=== PATIENT | female | born 1955 | race Caucasian/White ===

== ENCOUNTER 2018-06-03 05:55 | Inpatient (IN) | payer MEDICAID ==
[2018-06-01 12:47] LABS: BASOPHILS % (AUTO) 0.3 % (0-1); EOSINOPHILS # (AUTO) 0.2 X10'3 (0-0.9); EOSINOPHILS % (AUTO) 2.2 % (0-6); LYMPHOCYTES # (AUTO) 2.2 X10'3 (1.1-4.8); LYMPHOCYTES % (AUTO) 30.3 % (21-51); MEAN CORPUSCULAR HGB CONC 33.7 % (33.0-36.5); MEAN CORPUSCULAR VOLUME 88.8 FL (78-98); MONOCYTES # (AUTO) 0.5 X10'3 (0-0.9); MONOCYTES % (AUTO) 6.7 % (2-12); NEUTROPHILS # (AUTO) 4.3 X10'3 (1.8-7.7); NEUTROPHILS % (AUTO) 60.5 % (42-75); PRE OP HEMATOCRIT 44.7 % (35.0-45.0); PRE OP HEMOGLOBIN 15.1 g/dL (12.0-16.0); PRE OP PLATELET COUNT 212 X10'3 (140-440); RED BLOOD COUNT 5.04 X10'6 (4.20-5.60); RED CELL DISTRIBUTION WIDTH 13.3 % (11.5-14.5)
[2018-06-01 12:50] LABS: CLARITY,URINE CLEAR (Clear); COLOR,URINE YELLOW (Yellow); GLUCOSE, URINE NEGATIVE (Neg); KETONES,URINE NEGATIVE (Neg); LEUKOCYTE ESTERASE ,URINE NEGATIVE (Neg); NITRITES, URINE NEGATIVE (Neg); OCCULT BLOOD,URINE NEGATIVE (Neg); PH,URINE 5.5 (4.8-8.0); PROTEIN,URINE NEGATIVE (Neg); UROBILINOGEN,URINE 0.2 E.U/dL (0.2-1.0)
[2018-06-01 12:52] LABS: UA COLLECTION TYPE CLN CATCH MIDSTREAM
[2018-06-01 13:02] LABS: PRE OP INR 1.1 INR; PRE OP PROTIME 10.7 SECONDS (9.0-12.0)
[2018-06-01 13:14] LABS: ALBUMIN 3.8 G/DL (3.4-5.0); ALBUMIN/GLOBULIN RATIO 1.1 (1.1-1.5); ALKALINE PHOSPHATASE 79 IU/L (46-116); BLOOD UREA NITROGEN 24 MG/DL (7-18); BUN/CREATININE RATIO 32.4 (6.6-38.0); CALCIUM 9.7 MG/DL (8.5-10.1); CHLORIDE 102 MMOL/L (99-107); CREATININE 0.74 MG/DL (0.40-0.90); PRE OP ALT 20 U/L (30-65); PRE OP ANION GAP 6 (8-16); PRE OP AST 17 U/L (10-37); PRE OP BILIRUB, TOTAL 0.5 MG/DL (0.0-1.0); PRE OP GLUCOSE 89 MG/DL (70-104); PRE OP SODIUM 142 MMOL/L (135-145); TOTAL CARBON DIOXIDE 34.3 MMOL/L (24-32); TOTAL PROTEIN 7.2 G/DL (6.4-8.2); eGFR 80 ML/MIN
[2018-06-01 13:29] LABS: PRE OP POTASSIUM 3.2 MMOL/L (3.4-5.1)
[~2018-06-03] VITALS: Ht 167.6 cm; Wt 71.1 kg
[2018-06-03] VITALS (20 sets, daily range): BP systolic 101–134; BP diastolic 55–86
[~2018-06-03 05:55] MED LIST: ALBU18HF2 IH; BECL7.3A INH; CHOL10002 PO; CLON0.5T23 PO; DULO-31 PO; GLUC-131 PO; HYDR-4353 PO; HYDR25TA4 PO; LUTE40CA PO; MAGN400C PO; POTA10CA44 PO; THY60T PO; ZOLP5TAB8 PO; [UNRECOGNIZED DRUG - CODE] PO; albuterol 2.5 MG/3 ML nebule NEB ONE; ceFOXitin 2 GM ADDvantage bag 100 ML IV ONE; famotidine 20mg tablet PO ONE; ringers solution, lacted 1,000 ML IV SCH
[2018-06-03] MEDS ORDERED: LIDOcaine 1% (10mg/ml) 2ml vial ONE (06:11)
[2018-06-03 07:06] LABS: ISTAT CREATININE 0.7 mg/dL (0.6-1.1); ISTAT HGB 13.6 g/dl (12.0-16.0); ISTAT IONIZED CALCIUM 1.2 mmol/L (1.03-1.32); POC BUN/CREATININE RATIO 24.3 (6.6-38.0)
[2018-06-03] MEDS ORDERED: Potassium Cl 40 MEQ in NS 500 ML IV ONE (07:20)
[2018-06-03] MEDS ORDERED: potassium Cl 20 mEq SR tablet PO ONE (07:20)
[2018-06-03] MEDS ORDERED: fentaNYL /PF 50mcg/ml 5ml ampule ONE (08:19)
[2018-06-03] MEDS ORDERED: midazolam 2 mg/2 ml injection ONE (08:19)
[2018-06-03] MEDS ORDERED: propofol inj 20 ML IV ONE (08:21)
[2018-06-03] MEDS ORDERED: rocuronium 10mg/ml inj IV ONE ×2 (08:21→08:22)
[2018-06-03] MEDS ORDERED: LIDOcaine 2% (20mg/ml) 5ml vial ONE (08:21)
[2018-06-03] MEDS ORDERED: ondansetron/PF 4mg/2ml inj ONE (08:22)
[2018-06-03] MEDS ORDERED: neostigmine methylsulfate 1 MG/ML 10ml vial ONE (08:22)
[2018-06-03] MEDS ORDERED: sevoflurane 250ml liquid IH ONE (08:22)
[2018-06-03] MEDS ORDERED: glycopyrrolate 0.2mg/ml inj ONE (08:22)
[2018-06-03] MEDS ORDERED: dexamethasone sod phosphate 4mg/ml inj. ONE (08:46)
[2018-06-03] MEDS ORDERED: gentamicin 40 MG/1 ML inj ONE (08:57)
[2018-06-03] MEDS ORDERED: clindamycin phosphate 150mg/ml inj. ONE (08:57)
[2018-06-03] MEDS ORDERED: meperidine/PF 25mg/ml syringe IV PRN ×2 (09:10)
[2018-06-03] MEDS ORDERED: morphine 4 MG/ML inj SYRINge IV PRN ×2 (09:10)
[2018-06-03] MEDS ORDERED: ringers solution, lacted 1,000 ML IV SCH (09:10)
[2018-06-03] MEDS ORDERED: ondansetron/PF 4mg/2ml inj IV PRN ×2 (09:10→10:30)
[2018-06-03] MEDS ORDERED: proCHLORperazine 10 MG/2 ml inj IV PRN (09:10)
[2018-06-03] MEDS ORDERED: HYDROmorphone 1 mg/ml syringe IV PRN (10:30)
[2018-06-03] MEDS: meperidine/PF 25mg/ml syringe IV PRN ×2 (10:46→11:09)
[2018-06-03 11:37] LABS: ISTAT K 2.9 mmol/L (3.5-5.1)
[2018-06-03] MEDS ORDERED: ketorolac trometh. 30mg/ml inj. IV SCH (14:00)
[2018-06-03] MEDS: potassium CL 20mEq in D5-1/2NS 1,000 ML IV SCH ×2 (15:37→17:39)
[2018-06-03] MEDS: ceFOXitin 1 GM ADDVANTAGE BAG 50 ML IV SCH (16:22)
[2018-06-03] MEDS ORDERED: morphine/NS 5 mg/ml CADD 50 ML IV SCH (17:00)
[2018-06-03] MEDS ORDERED: CADD PCA waste documentation MC SCH (17:20)
[2018-06-03] MEDS: morphine/NS 5 mg/ml CADD 50 ML IV SCH ×3 (19:10→23:00)
[2018-06-04] VITALS: BP 116/53
[2018-06-04] MEDS: potassium CL 20mEq in D5-1/2NS 1,000 ML IV SCH ×3 (00:14→20:05)
[2018-06-04] MEDS: ceFOXitin 1 GM ADDVANTAGE BAG 50 ML IV SCH (00:14)
[2018-06-04] MEDS: morphine/NS 5 mg/ml CADD 50 ML IV SCH ×12 (01:00→23:00)
[2018-06-04 05:30] LABS: BASOPHILS % (AUTO) 0 % (0-1); EOSINOPHILS # (AUTO) 0.2 X10'3 (0-0.9); EOSINOPHILS % (AUTO) 1.9 % (0-6); HEMATOCRIT 38.6 % (35.0-45.0); HEMOGLOBIN 12.8 g/dl (12.0-16.0); LYMPHOCYTES # (AUTO) 1.6 X10'3 (1.1-4.8); LYMPHOCYTES % (AUTO) 12.9 % (21-51); MEAN CORPUSCULAR HEMOGLOBIN 29.9 PG (27.0-31.0); MEAN CORPUSCULAR HGB CONC 33.1 % (33.0-36.5); MEAN CORPUSCULAR VOLUME 90.4 FL (78-98); MEAN PLATELET VOLUME 9.4 FL (7.4-10.4); MONOCYTES # (AUTO) 1.3 X10'3 (0-0.9); MONOCYTES % (AUTO) 10.2 % (2-12); NEUTROPHILS # (AUTO) 9.5 X10'3 (1.8-7.7); PLATELET COUNT 175 X10'3 (140-440); RED BLOOD COUNT 4.28 X10'6 (4.20-5.60); RED CELL DISTRIBUTION WIDTH 13.7 % (11.5-14.5); WHITE BLOOD COUNT 12.6 X10'3 (4.5-11.0)
[2018-06-04 06:05] LABS: ALBUMIN 2.9 G/DL (3.4-5.0); ANION GAP 8 (8-16); BLOOD UREA NITROGEN 9 MG/DL (7-18); BUN/CREATININE RATIO 14.3 (6.6-38.0); CALCIUM 8.6 MG/DL (8.5-10.1); CHLORIDE 107 MMOL/L (99-107); CREATININE 0.63 MG/DL (0.40-0.90); GLUCOSE 121 MG/DL (70-104); POTASSIUM 3.9 MMOL/L (3.5-5.1); SODIUM 142 MMOL/L (135-145); TOTAL CARBON DIOXIDE 26.6 MMOL/L (24-32); eGFR > 90 ML/MIN
[2018-06-04 06:53] VITALS: BP 103/59
[2018-06-04] MEDS ORDERED: HYDROchlorothiazide 25mg tablet PO PRN (11:10)
[2018-06-04] MEDS ORDERED: zolpidem 5mg tablet PO PRN (11:10)
[2018-06-04] MEDS ORDERED: clonazePAM 0.5mg tablet PO PRN (11:10)
[2018-06-04] MEDS ORDERED: HYDROcodone/acetaminophen 10/325mg tab PO PRN (11:10)
[2018-06-04 11:45] VITALS: BP 107/50
[2018-06-04] MEDS ORDERED: potassium chloride 10mEq CAPSULE.SA PO SCH (12:00)
[2018-06-04] MEDS ORDERED: mag hydrox/Alum hydrox/simeth 30ml oral suspension PO PRN (12:10)
[2018-06-04] MEDS: duloxetine 30mg CAPSULE.DR PO SCH (12:19)
[2018-06-04] MEDS: thyroid, pork 30mg tablet PO SCH (12:41)
[2018-06-04] MEDS ORDERED: potassium chloride 10mEq ER tablet PO SCH (12:51)
[2018-06-04] MEDS: potassium chloride 10mEq ER tablet PO SCH (13:14)
[2018-06-04] MEDS: albuterol 2.5 MG/3 ML nebule NEB PRN ×2 (17:34→20:56)
[2018-06-04 20:00] VITALS: BP 116/60
[2018-06-04] MEDS ORDERED: mag hydrox/Alum hydrox/simeth 30ml oral suspension PO ONE (20:00)
[2018-06-04] MEDS ORDERED: BUDESONIDE 0.25 MG/2 ML AMPUL.NEB IH SCH (20:00)
[2018-06-04] MEDS: famotidine/PF 10 mg/ml inj IV SCH (20:01)
[2018-06-04] MEDS: BUDESONIDE 0.25 MG/2 ML AMPUL.NEB IH SCH (20:57)
[2018-06-05] VITALS: BP 103/53
[2018-06-05] MEDS: morphine/NS 5 mg/ml CADD 50 ML IV SCH ×8 (01:00→15:00)
[2018-06-05] MEDS: potassium CL 20mEq in D5-1/2NS 1,000 ML IV SCH ×2 (05:15→22:13)
[2018-06-05 05:16] LABS: BASOPHILS % (AUTO) 0.3 % (0-1); EOSINOPHILS # (AUTO) 0.2 X10'3 (0-0.9); EOSINOPHILS % (AUTO) 2.6 % (0-6); HEMATOCRIT 35.1 % (35.0-45.0); HEMOGLOBIN 11.8 g/dl (12.0-16.0); LYMPHOCYTES # (AUTO) 1.7 X10'3 (1.1-4.8); MEAN CORPUSCULAR HEMOGLOBIN 30.4 PG (27.0-31.0); MEAN CORPUSCULAR HGB CONC 33.7 % (33.0-36.5); MEAN CORPUSCULAR VOLUME 90.1 FL (78-98); MEAN PLATELET VOLUME 9.5 FL (7.4-10.4); MONOCYTES # (AUTO) 0.9 X10'3 (0-0.9); MONOCYTES % (AUTO) 10.4 % (2-12); NEUTROPHILS % (AUTO) 67.7 % (42-75); PLATELET COUNT 148 X10'3 (140-440); RED BLOOD COUNT 3.89 X10'6 (4.20-5.60); RED CELL DISTRIBUTION WIDTH 13.9 % (11.5-14.5); WHITE BLOOD COUNT 8.8 X10'3 (4.5-11.0)
[2018-06-05 06:20] LABS: ALBUMIN 2.8 G/DL (3.4-5.0); ANION GAP 6 (8-16); BLOOD UREA NITROGEN 6 MG/DL (7-18); BUN/CREATININE RATIO 10.2 (6.6-38.0); CALCIUM 8.3 MG/DL (8.5-10.1); CHLORIDE 107 MMOL/L (99-107); CREATININE 0.59 MG/DL (0.40-0.90); GLUCOSE 97 MG/DL (70-104); POTASSIUM 4.2 MMOL/L (3.5-5.1); SODIUM 141 MMOL/L (135-145); TOTAL CARBON DIOXIDE 28.1 MMOL/L (24-32); eGFR > 90 ML/MIN
[2018-06-05 07:28] VITALS: BP 110/64
[2018-06-05] MEDS: thyroid, pork 30mg tablet PO SCH (07:42)
[2018-06-05] MEDS: potassium chloride 10mEq ER tablet PO SCH (07:42)
[2018-06-05] MEDS: duloxetine 30mg CAPSULE.DR PO SCH (07:43)
[2018-06-05] MEDS: famotidine/PF 10 mg/ml inj IV SCH (07:45)
[2018-06-05] MEDS: BUDESONIDE 0.25 MG/2 ML AMPUL.NEB IH SCH ×2 (08:50→20:52)
[2018-06-05] MEDS: albuterol 2.5 MG/3 ML nebule NEB PRN (08:50)
[2018-06-05] MEDS ORDERED: albuterol 2.5 MG/3 ML nebule NEB PRN (10:00)
[2018-06-05] MEDS ORDERED: albuterol 2.5 MG/3 ML nebule NEB SCH (10:05)
[2018-06-05 11:45] VITALS: BP 104/58
[2018-06-05] MEDS: HYDROcodone/acetaminophen 10/325mg tab PO PRN ×2 (16:49→21:21)
[2018-06-05] MEDS: albuterol 2.5 MG/3 ML nebule NEB SCH ×3 (16:58→23:00)
[2018-06-05 19:30] VITALS: BP 109/57
[2018-06-05] MEDS: famotidine 20mg tablet PO SCH (19:56)
[2018-06-06] MEDS: HYDROcodone/acetaminophen 10/325mg tab PO PRN ×4 (01:40→14:26)
[2018-06-06] MEDS: albuterol 2.5 MG/3 ML nebule NEB SCH ×4 (03:04→14:49)
[2018-06-06 05:16] LABS: BASOPHILS % (AUTO) 0.2 % (0-1); EOSINOPHILS # (AUTO) 0.2 X10'3 (0-0.9); HEMATOCRIT 33.2 % (35.0-45.0); HEMOGLOBIN 11.3 g/dl (12.0-16.0); LYMPHOCYTES % (AUTO) 16.9 % (21-51); MEAN CORPUSCULAR HEMOGLOBIN 30.3 PG (27.0-31.0); MEAN CORPUSCULAR VOLUME 89.2 FL (78-98); MEAN PLATELET VOLUME 9.1 FL (7.4-10.4); MONOCYTES # (AUTO) 0.7 X10'3 (0-0.9); MONOCYTES % (AUTO) 12.7 % (2-12); NEUTROPHILS # (AUTO) 3.8 X10'3 (1.8-7.7); NEUTROPHILS % (AUTO) 67.2 % (42-75); PLATELET COUNT 136 X10'3 (140-440); RED BLOOD COUNT 3.72 X10'6 (4.20-5.60); RED CELL DISTRIBUTION WIDTH 13.4 % (11.5-14.5); WHITE BLOOD COUNT 5.7 X10'3 (4.5-11.0)
[2018-06-06 05:30] LABS: ALBUMIN 2.5 G/DL (3.4-5.0); ANION GAP 7 (8-16); BLOOD UREA NITROGEN 5 MG/DL (7-18); BUN/CREATININE RATIO 8.1 (6.6-38.0); CALCIUM 8.5 MG/DL (8.5-10.1); CHLORIDE 105 MMOL/L (99-107); CREATININE 0.62 MG/DL (0.40-0.90); GLUCOSE 103 MG/DL (70-104); POTASSIUM 3.7 MMOL/L (3.5-5.1); SODIUM 140 MMOL/L (135-145); eGFR > 90 ML/MIN
[2018-06-06 07:00] VITALS: BP 104/60
[2018-06-06] MEDS: BUDESONIDE 0.25 MG/2 ML AMPUL.NEB IH SCH (07:43)
[2018-06-06] MEDS: potassium chloride 10mEq ER tablet PO SCH (08:20)
[2018-06-06] MEDS: thyroid, pork 30mg tablet PO SCH (08:20)
[2018-06-06] MEDS: duloxetine 30mg CAPSULE.DR PO SCH (08:20)
[2018-06-06] MEDS: famotidine 20mg tablet PO SCH (08:21)
[2018-06-06 11:00] VITALS: BP 108/65
[2018-06-06] MEDS ORDERED: pneumococcal 23-VAL P-sac vacc 25 mcg/0.5ml vial IMVAC ONE (11:50)
== END 2018-06-06 18:36 | disposition home or self-care (01) | DRG 231 ==
LOC: PAS IN 05:55 → EDSTATUS 08:00 → EDBD 08:00 → SUR 3N 12:41
PROVIDERS: ADMIT Surgery; ATTEND Surgery
PROC: 0DBH4ZZ Excision of Cecum, Percutaneous Endoscopic Approach (ICD-10-PCS; principal; 2018-06-03 08:22)
PROC: 3E0234Z Introduction of Serum, Toxoid and Vaccine into Muscle, Percutaneous Approach (ICD-10-PCS; 2018-06-06)
DX: D12.0 Benign neoplasm of cecum (principal); E03.9 Hypothyroidism, unspecified; J45.909 Unspecified asthma, uncomplicated; F32.9 Major depressive disorder, single episode, unspecified; F41.9 Anxiety disorder, unspecified; G89.29 Other chronic pain; M54.9 Dorsalgia, unspecified; Z87.891 Personal history of nicotine dependence; Z90.710 Acquired absence of both cervix and uterus; Z23 Encounter for immunization; Z90.49 Acquired absence of other specified parts of digestive tract; Z79.899 Other long term (current) drug therapy; Z88.8 Allergy status to other drugs, medicaments and biological substances
CPT/HCPCS: 36415; 71046; 80047; 80048; 80053; 81003; 84443; 85025; 85610; 85730; 86885; 86900; 86901; 87070; 90732; 93005; 94640; 94760; A6251; A6266; A7000; C1758; G0378; J0690; J0694; J1100; J1580; J1885; J2001; J2175; J2250; J2270; J2405; J2704; J2710; J3010; J3480; J3490; J7030; J7120